=== PATIENT | male | born 1995 | race Caucasian/White ===

== ENCOUNTER 2017-09-26 09:12 | Outpatient (CLI) | payer BC ==
[2017-09-26 13:08] LABS: ALBUMIN/GLOBULIN RATIO 1.9 (1.0-2.2); BILIRUBIN,TOTAL 0.8 mg/dL (0.2-1.0); CALCIUM 9.8 mg/dL (8.5-10.3); POTASSIUM 4.3 mmol/L (3.5-5.0); TOTAL PROTEIN 7.6 g/dL (6.7-8.2)
[2017-09-26 13:15] LABS: HEMOGLOBIN A1C 1.01 g/dL
[2017-09-28 14:16] LABS: TEST RESULT REPORT
== END 2017-09-26 09:13 | disposition home or self-care (01) ==
LOC: LAB.WCP 09:12
PROVIDERS: ATTEND Family Medicine
DX: E11.9 Type 2 diabetes mellitus without complications (principal)
CPT/HCPCS: 36415; 80053; 81599; 83036; 84681; 86200

== ENCOUNTER 2017-12-19 08:00 | Outpatient (CLI) | payer BC ==
[2017-12-19 19:25] LABS: HB2 TOTAL 14.8 g/dL; HEMOGLOBIN A1C 0.91 g/dL; HEMOGLOBIN A1C % 7.8 % (4.6-6.2)
== END 2017-12-19 08:01 | disposition home or self-care (01) ==
LOC: LAB.WCP 08:00
PROVIDERS: ATTEND Family Medicine
DX: E11.9 Type 2 diabetes mellitus without complications (principal)
CPT/HCPCS: 36415; 83036

== ENCOUNTER 2019-08-14 08:00 | Outpatient (CLI) | payer BC, OTHER ==
[2019-08-14 12:52] LABS: HEMOGLOBIN A1C 0.66 g/dL; HEMOGLOBIN A1C % 6.5 % (4.6-6.2)
[2019-08-14 13:02] LABS: ALBUMIN 4.6 g/dL (3.2-5.5); ALBUMIN/GLOBULIN RATIO 1.7 (1.0-2.2); ALKALINE PHOSPHATASE 35 IU/L (42-121); ALT ALANINE AMINOTRANSFERASE 11 IU/L (10-60); AST ASPARTATE AMINOTRANSFERASE 14 IU/L (10-42); BILIRUBIN,TOTAL 0.3 mg/dL (0.2-1.0); BUN - BLOOD UREA NITROGEN 9 mg/dL (6-20); CALCIUM 9.4 mg/dL (8.5-10.3); CARBON DIOXIDE - CO2 28 mmol/L (21-32); CHLORIDE 106 mmol/L (101-111); CHOL/HDL RATIO 3.1 (<5.0); CHOLESTEROL 148 mg/dL; CREATININE 0.7 mg/dL (0.6-1.2); GFR - MDRD 141 (>89); GLUCOSE 156 mg/dL (70-100); HDL CHOLESTEROL 47 mg/dL; LDL CHOLESTEROL,CALCULATED 87 mg/dL; LDL/HDL RATIO 1.9 (<3.6); SODIUM 139 mmol/L (135-145); TOTAL PROTEIN 7.3 g/dL (6.7-8.2); VLDL CHOLESTEROL 14 mg/dL
== END 2019-08-14 23:59 | disposition home or self-care (01) ==
LOC: LAB.WCP 08:00
PROVIDERS: ATTEND Physician Assistant Medical
DX: E11.9 Type 2 diabetes mellitus without complications (principal)
CPT/HCPCS: 36415; 80053; 80061; 83036; 83721

== ENCOUNTER 2020-08-22 11:50 | Outpatient (CLI) | payer OTHER ==
[2020-08-22 18:41] LABS: CALCIUM 9.8 mg/dL (8.5-10.3); CREATININE 0.8 mg/dL (0.6-1.2)
[2020-08-22 20:11] LABS: HEMOGLOBIN A1c% 14.6 % (4.27-6.07)
== END 2020-08-22 23:59 | disposition home or self-care (01) ==
LOC: LAB.WCP 11:50
PROVIDERS: ATTEND Physician Assistant Medical
DX: E11.9 Type 2 diabetes mellitus without complications (principal)
CPT/HCPCS: 36415; 80048; 83036

== ENCOUNTER 2021-07-20 11:06 | Outpatient (CLI) | payer OTHER ==
[2021-07-20 18:47] LABS: ALBUMIN 4.6 g/dL (3.2-5.5); ALBUMIN/GLOBULIN RATIO 1.6 (1.0-2.2); ALKALINE PHOSPHATASE 58 IU/L (42-121); ALT ALANINE AMINOTRANSFERASE 13 IU/L (10-60); AST ASPARTATE AMINOTRANSFERASE 12 IU/L (10-42); BILIRUBIN,TOTAL 0.7 mg/dL (0.2-1.0); BUN - BLOOD UREA NITROGEN 10 mg/dL (6-20); CALCIUM 9.3 mg/dL (8.5-10.3); CARBON DIOXIDE - CO2 24 mmol/L (21-32); CHLORIDE 99 mmol/L (101-111); CHOL/HDL RATIO 6.4 (<5.0); CHOLESTEROL 277 mg/dL; CREATININE 0.7 mg/dL (0.6-1.2); GFR - MDRD 139 (>89); GLUCOSE 341 mg/dL (70-100); HDL CHOLESTEROL 43 mg/dL; LDL CHOLESTEROL,CALCULATED 185 mg/dL; LDL/HDL RATIO 4.3 (<3.6); POTASSIUM 4.4 mmol/L (3.5-5.0); SODIUM 135 mmol/L (135-145); TOTAL PROTEIN 7.5 g/dL (6.7-8.2); TRIGLYCERIDES 244 mg/dL; VLDL CHOLESTEROL 49 mg/dL
[2021-07-20 18:53] LABS: THYROID STIMULATING HORMONE 2.15 uIU/mL (0.34-5.60)
[2021-07-20 18:54] LABS: CREATININE,URINE 117.9 mg/dL; MICROALBUM/CREATININE RATIO,UR 42.4 ug/mg (<30.0)
[2021-07-20 19:39] LABS: ESTIMATED AVERAGE GLUCOSE 361 mg/dL (70-100); HEMOGLOBIN A1c% 14.2 % (4.27-6.07)
== END 2021-07-20 23:59 | disposition home or self-care (01) ==
LOC: LAB.WCP 11:06
PROVIDERS: ATTEND Physician Assistant Medical
DX: E11.9 Type 2 diabetes mellitus without complications (principal)
CPT/HCPCS: 36415; 80053; 80061; 82043; 82570; 83036; 83721; 84443

== ENCOUNTER 2022-04-27 16:18 | Outpatient (CLI) | payer OTHER ==
[2022-04-27 21:06] LABS: CALCIUM 10.1 mg/dL (8.5-10.3); CREATININE 0.8 mg/dL (0.6-1.2)
[2022-04-27 21:47] LABS: ESTIMATED AVERAGE GLUCOSE 309 mg/dL (70-100); HEMOGLOBIN A1c% 12.4 % (4.27-6.07)
== END 2022-04-27 16:19 | disposition home or self-care (01) ==
LOC: LAB.N 16:18
PROVIDERS: ATTEND Physician Assistant Medical
DX: E11.9 Type 2 diabetes mellitus without complications (principal)
CPT/HCPCS: 36415; 80048; 83036

== ENCOUNTER 2023-01-05 12:22 | Outpatient (CLI) | payer OTHER ==
[2023-01-05 17:52] LABS: BASOPHILS # (AUTO) 0.1 10^3/uL (0.0-0.1); BASOPHILS % (AUTO) 0.8 %; EOSINOPHILS # (AUTO) 0.1 10^3/uL (0.0-0.7); EOSINOPHILS % (AUTO) 0.8 %; HCT - HEMATOCRIT 48.2 % (42.0-52.0); HGB - HEMOGLOBIN 16.1 g/dL (14.0-18.0); LYMPHOCYTES # (AUTO) 1.6 10^3/uL (1.5-3.5); LYMPHOCYTES % (AUTO) 20.6 %; MEAN CORPUSCULAR HGB CONC 33.4 g/dL (32.0-36.0); MEAN CORPUSCULAR VOLUME 83.8 fL (80.0-94.0); MEAN PLATELET VOLUME 10.8 fL (7.4-11.4); MONOCYTES # (AUTO) 0.6 10^3/uL (0.0-1.0); MONOCYTES % (AUTO) 8.4 %; NEUTROPHILS # (AUTO) 5.2 10^3/uL (1.5-6.6); NEUTROPHILS % (AUTO) 68.7 %; PLT - PLATELET COUNT 368 10^3/uL (130-450); RED BLOOD COUNT 5.75 10^6/uL (4.70-6.10); WHITE BLOOD COUNT 7.5 x10^3/uL (4.8-10.8)
[2023-01-05 18:06] LABS: ALBUMIN 4.6 g/dL (3.2-5.5); ALBUMIN/GLOBULIN RATIO 1.2 (1.0-2.2); ALKALINE PHOSPHATASE 60 IU/L (42-121); ALT ALANINE AMINOTRANSFERASE < 10 IU/L (10-60); AST ASPARTATE AMINOTRANSFERASE < 10 IU/L (10-42); BILIRUBIN,TOTAL 0.6 mg/dL (0.2-1.0); BUN - BLOOD UREA NITROGEN 14 mg/dL (6-20); CALCIUM 11.1 mg/dL (8.5-10.3); CARBON DIOXIDE - CO2 29 mmol/L (21-32); CHLORIDE 100 mmol/L (101-111); CHOL/HDL RATIO 4.9 (<5.0); CHOLESTEROL 249 mg/dL; CREATININE 0.8 mg/dL (0.6-1.2); GFR - MDRD 118 (>89); GLUCOSE 389 mg/dL (70-100); HDL CHOLESTEROL 51 mg/dL; LDL CHOLESTEROL,CALCULATED 164 mg/dL; LDL/HDL RATIO 3.2 (<3.6); POTASSIUM 4.8 mmol/L (3.5-5.0); SODIUM 141 mmol/L (135-145); TOTAL PROTEIN 8.3 g/dL (6.7-8.2); TRIGLYCERIDES 169 mg/dL; VLDL CHOLESTEROL 34 mg/dL
[2023-01-05 18:08] LABS: CREATININE,URINE 95.3 mg/dL; MICROALBUM/CREATININE RATIO,UR 12.6 ug/mg (<30.0); MICROALBUMIN,URINE 1.2 mg/dL (0-300.0)
[2023-01-05 18:16] LABS: THYROID STIMULATING HORMONE 2.2 uIU/mL (0.34-5.60)
[2023-01-05 20:53] LABS: ESTIMATED AVERAGE GLUCOSE 278 mg/dL (70-100); HEMOGLOBIN A1c% 11.3 % (4.27-6.07)
== END 2023-01-05 12:23 | disposition home or self-care (01) ==
LOC: LAB.N 12:22
PROVIDERS: ATTEND Physician Assistant Medical
DX: E11.9 Type 2 diabetes mellitus without complications (principal)
CPT/HCPCS: 36415; 80053; 80061; 82043; 82570; 83036; 83721; 84443; 85025

== ENCOUNTER 2023-10-04 13:52 | Outpatient (CLI) | payer OTHER ==
[2023-10-04 18:06] LABS: ALBUMIN 4.6 g/dL (3.2-5.5); ALBUMIN/GLOBULIN RATIO 1.8 (1.0-2.2); ALKALINE PHOSPHATASE 66 IU/L (42-121); ALT ALANINE AMINOTRANSFERASE 16 IU/L (10-60); AST ASPARTATE AMINOTRANSFERASE 12 IU/L (10-42); BILIRUBIN,TOTAL 0.3 mg/dL (0.2-1.0); BUN - BLOOD UREA NITROGEN 11 mg/dL (6-20); CALCIUM 9.6 mg/dL (8.5-10.3); CARBON DIOXIDE - CO2 26 mmol/L (21-32); CHLORIDE 101 mmol/L (101-111); CHOL/HDL RATIO 5.2 (<5.0); CHOLESTEROL 235 mg/dL; CREATININE 0.8 mg/dL (0.6-1.3); GFR - MDRD 117 (>89); GLUCOSE 419 mg/dL (74-104); HDL CHOLESTEROL 45 mg/dL; LDL CHOLESTEROL,CALCULATED 144 mg/dL; LDL/HDL RATIO 3.2 (<3.6); POTASSIUM 4.2 mmol/L (3.5-4.5); SODIUM 136 mmol/L (135-145); TOTAL PROTEIN 7.1 g/dL (6.4-8.9); TRIGLYCERIDES 232 mg/dL (48-352); VLDL CHOLESTEROL 46 mg/dL
[2023-10-04 21:21] LABS: ESTIMATED AVERAGE GLUCOSE 283 mg/dL (70-100); HEMOGLOBIN A1c% 11.5 % (4.27-6.07)
== END 2023-10-04 13:53 | disposition home or self-care (01) ==
LOC: LAB.N 13:52
PROVIDERS: ATTEND Physician Assistant Medical
DX: E11.9 Type 2 diabetes mellitus without complications (principal)
CPT/HCPCS: 36415; 80053; 80061; 83036; 83721

== ENCOUNTER 2023-11-28 19:15 | Emergency (ER) | payer OTHER ==
[2023-11-28 19:36] VITALS: O2SAT 100
[2023-11-28] MEDS ORDERED: SODIUM CHLORIDE 0.9% 1,000 ML IV STA (19:43)
[2023-11-28 19:59] LABS: BASOPHILS # (AUTO) 0.1 10^3/uL (0.0-0.1); BASOPHILS % (AUTO) 0.9 %; EOSINOPHILS # (AUTO) 0.1 10^3/uL (0.0-0.7); HCT - HEMATOCRIT 43.8 % (42.0-52.0); HGB - HEMOGLOBIN 14.7 g/dL (14.0-18.0); LYMPHOCYTES % (AUTO) 31.3 %; MEAN CORPUSCULAR HEMOGLOBIN 28.7 pg (27.0-31.0); MEAN CORPUSCULAR HGB CONC 33.6 g/dL (32.0-36.0); MEAN CORPUSCULAR VOLUME 85.4 fL (80.0-94.0); MEAN PLATELET VOLUME 10.1 fL (7.4-11.4); MONOCYTES # (AUTO) 0.6 10^3/uL (0.0-1.0); MONOCYTES % (AUTO) 8.6 %; NEUTROPHILS # (AUTO) 3.6 10^3/uL (1.5-6.6); NEUTROPHILS % (AUTO) 56.7 %; PLT - PLATELET COUNT 328 10^3/uL (130-450); RED BLOOD COUNT 5.13 10^6/uL (4.70-6.10); RED CELL DISTRIBUTION WIDTH 11.8 % (12.0-15.0); WHITE BLOOD COUNT 6.4 x10^3/uL (4.8-10.8)
--- NOTE | 2023-11-28 20:05 | ED Physician Documentation ---
History of Present Illness - Stated complaint Stated Complaint: POSS OD - Chief complaint Chief Complaint: MHE - History obtained from History obtained from: Patient - Additonal information Additional information: The patient comes to the emergency department with chief complaint of ibuprofen ingestion this afternoon. He states that he had a headache which occasionally happens but is not a regular thing, and that he was try to get his headache to go away. He states that the headache came on around 1300 today and that around 1400 he drank a bunch of water and took 600 mg of ibuprofen. He states he laid down and tried to take a nap but every time he woke up, he would realize he still had a headache and would take another dose of ibuprofen. He took his final dose of another 600 mg around 1800. He states he took a total of 12 200 mg tabs or about 2400 mg total. The patient states that shortly after he took his final dose, his mother arrived home and became alarmed that he had taken some much medication. The patient states that he tried to induce vomiting at around 1830 but by that time, he could not tell if there were any pill fragments left and states all he saw was a Gatorade that he had had to drink. This was about 30 minutes after his final 600 mg. The patient states that he feels "great" now and that his headache is completely gone. He is not nauseated and denies any abdominal pain. He states he is otherwise fairly healthy although his doctors told him he needs to exercise more and eat less sugar. The patient states he has not been ill with anything recently and did not take any other medications or other substances today. He states he was not at all trying to harm himself but simply wanted his headache to go away. No other complaints at this time. PD PAST MEDICAL HISTORY - Past Medical History Cardiovascular: None Respiratory: None Endocrine/Autoimmune: Type 1 diabetes GI: None : None HEENT: None Psych: None Musculoskeletal: Fibromyalgia Derm: None - Past Surgical History Past Surgical History: No - Present Medications Home Medications: Ambulatory Orders Medication Instructions Recorded Confirmed Insulin Glargine [Lantus Solostar] 35 units SUBQ BID 11/28/23 11/28/23 Insulin Lispro [Humalog Kwikpen 30 units SUBQ TIDWM 11/28/23 11/28/23 U-100] - Allergies Allergies/Adverse Reactions: Allergies Allergy/AdvReac Type Severity Reaction Status Date / Time No Known Drug Allergies Allergy Verified 11/28/23 19:20 - Social History Does the pt smoke?: No Smoking Status: Never smoker Does the pt drink ETOH?: No Does the pt have substance abuse?: No - Immunizations Immunizations are current?: Yes PD ED PE NORMAL - Vitals Vital signs reviewed: Yes - General General: Alert and oriented X 3, No acute distress, Well developed/nourished, Other (Well-appearing) - HEENT HEENT: Atraumatic, PERRL, EOMI, Moist mucous membranes - Neck Neck: Supple, no meningeal sign - Cardiac Cardiac: RRR, No murmur - Respiratory Respiratory: No respiratory distress, Clear bilaterally - Abdomen Abdomen: Soft, Non tender, Non distended - Derm Derm: Normal color, Warm and dry, No rash - Extremities Extremities: No deformity, No edema - Neuro Neuro: Alert and oriented X 3, Other (Grossly intact) - Psych Psych: Normal mood, Normal affect Results - Vitals Vitals: Oxygen O2 Source Room air - Labs Labs: Laboratory Tests 11/28/23 11/28/23 19:55 19:55 WBC 6.4 RBC 5.13 Hgb 14.7 Hct 43.8 MCV 85.4 MCH 28.7 MCHC 33.6 RDW 11.8 L Plt Count 328 MPV 10.1 Neut # (Auto) 3.6 Lymph # (Auto) 2.0 [place]hin # (Auto) 0.6 Eos # (Auto) 0.1 Baso # (Auto) 0.1 Absolute Nucleated RBC 0.00 Nucleated RBC % 0.0 Sodium 137 Potassium 4.4 Chloride 102 Carbon Dioxide 26 Anion Gap 9.0 BUN 10 Creatinine 0.8 Estimated GFR (MDRD) 117 Glucose 243 H Calcium 9.6 Total Bilirubin 0.3 AST 11 ALT 14 Alkaline Phosphatase 58 Total Protein 7.1 Albumin 4.7 Globulin 2.4 Albumin/Globulin Ratio 2.0 Lipase 16 Salicylates < 1.5 Acetaminophen 0.3 Ethyl Alcohol < 10.0 PD Medical Decision Making - ED course Complexity details: reviewed results, re-evaluated patient, considered differential, d/w patient, d/w family ED course: The patient was very well-appearing in the emergency department and I discussed with him that the amount of ibuprofen that he is taken is unlikely to cause him any serious issues. Patient is asymptomatic at this time and is insistent that he was only trying to get rid of his headache, not harm himself. I did order labs including CBC, ER abdominal panel, acetaminophen and salicylate levels, EtOH level, and urine drug screen. I also ordered a liter of normal saline as a bolus. The patient declined the saline solution, but did drink about 1700 cc of water in the emergency department. His laboratory studies were unremarkable. It seemed quite clear that this was not a suicide attempt. The patient was completely asymptomatic and given the generally innocuous nature of ibuprofen, especially in small overdose, I felt he was stable for discharge. This was in keeping with poison control's recommendations as well. We have discussed the need to stick with normal dosing for ibuprofen and not to exceed this. We have discussed that the patient may add Tylenol if he has a headache that is not being adequately treated with just ibuprofen alone. The patient has expressed understanding. Departure - Departure Disposition: 01 Home, Self Care Clinical Impression: Ibuprofen overdose Qualifiers: Encounter type: initial encounter Injury intent: accidental or unintentional Qualified Code(s): T39.311A - Poisoning by propionic acid derivatives, a ccidental (unintentional), initial encounter Condition: Stable Instructions: ED Overdose Accidental Comments: Overall, the amount of extra ibuprofen that you took was fairly mild and in general, this is a fairly benign ingestion. Ibuprofen is metabolized by the kidneys and you have good baseline kidney function which is normal on your labs tonight, as well. You have declined IV fluids to further flush out your system, but have done a good job of drinking fluid here in the emergency department. There is no evidence of any other substances in your system tonight. Your blood sugar is moderately elevated and this is something that you should continue to work on with your doctor, and should continue to combat with lifestyle adjustments. If your sugar continues to run high, you will need to talk to your doctor about whether or not you need to be on medication. As far as headaches in the future, you should make sure that you are taking all medications only as directed. For ibuprofen, you may take 400 mg every 4 hours, 600 mg every 6 hours, or 800 mg every 8 hours. If this does not seem to be helping your headache, you may simultaneously take Tylenol, which is acetaminophen. The dosing for this is 650 mg every 4 hours or 1000 mg every 6 hours. Ibuprofen and acetaminophen are completely unrelated medications and will not cause harm if taken together. Acetaminophen is metabolized by the liver and ibuprofen by the kidneys, so there is no "overwhelming" of any one organ system. Forms: PCP List Discharge Date/Time: 11/28/23 21:30
[2023-11-28 20:16] LABS: ACETAMINOPHEN 0.3 ug/mL; ALBUMIN 4.7 g/dL (3.2-5.5); ALKALINE PHOSPHATASE 58 IU/L (42-121); ALT ALANINE AMINOTRANSFERASE 14 IU/L (10-60); AST ASPARTATE AMINOTRANSFERASE 11 IU/L (10-42); BILIRUBIN,TOTAL 0.3 mg/dL (0.2-1.0); BUN - BLOOD UREA NITROGEN 10 mg/dL (6-20); CALCIUM 9.6 mg/dL (8.5-10.3); CARBON DIOXIDE - CO2 26 mmol/L (21-32); CHLORIDE 102 mmol/L (101-111); CREATININE 0.8 mg/dL (0.6-1.3); ETOH - ETHANOL < 10.0 mg/dL; GFR - MDRD 117 (>89); GLUCOSE 243 mg/dL (74-104); LIPASE 16 U/L (11-82); POTASSIUM 4.4 mmol/L (3.5-4.5); SALICYLATE < 1.5 mg/dL; SODIUM 137 mmol/L (135-145); TOTAL PROTEIN 7.1 g/dL (6.4-8.9)
[2023-11-28 21:16] VITALS: BP 155/114
== END 2023-11-28 21:30 | disposition home or self-care (01) ==
LOC: ED 19:15
DX: T39.311A Poisoning by propionic acid derivatives, accidental (unintentional), initial encounter (principal); E10.9 Type 1 diabetes mellitus without complications
CPT/HCPCS: 36415; 80053; 80307; 80320; 80329; 83690; 85025; 99283